=== PATIENT | male | born 2000 | race Caucasian/White ===

== ENCOUNTER → 2021-09-07 | Outpatient (CLI) | payer OTHER ==
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
== END ==
LOC: KCIC MRI 13:53
PROVIDERS: ATTEND Family Medicine Sports Medicine
DX: R07.89 Other chest pain (principal)
CPT/HCPCS: 71550